=== PATIENT | female | born 1980 | race Hispanic/Latino ===

== ENCOUNTER 2022-03-03 10:18 | Emergency (ER) | payer MEDICARE ==
[~2022-03-03] VITALS: Ht 152.4 cm; Wt 61.2 kg
[2022-03-03 11:51] LABS: CLARITY,URINE CLEAR (CLEAR); COLOR,URINE YELLOW (YELLOW)
[2022-03-03 11:52] LABS: KETONES,URINE 1+ (NEGATIVE); LEUKOCYTE ESTERASE ,URINE NEGATIVE (NEGATIVE); NITRITE,URINE NEGATIVE (NEGATIVE); PROTEIN,URINE DIPSTICK 1+ (NEGATIVE); URINE UROBILINOGEN 0.2 mg/dL (0.2 - 1)
[2022-03-03 11:55] LABS: BACTERIA,URINE FEW /HPF; EPITHELIAL CELLS,URINE FEW /LPF; RBC,URINE 0-5 /HPF (0-5); TRANSITIONAL EPI CELLS,URINE RARE; WBC,URINE (MAN) 0-5 /HPF (0-5)
[2022-03-03 13:13] LABS: CALCIUM 8.8 mg/dL (8.4-10.2); CREATININE, SERUM 0.51 mg/dL (0.57-1.11)
[2022-03-03] MEDS ORDERED: HYDROCHLOROTH12.5 MG PO (13:37)
== END 2022-03-03 13:43 | disposition home or self-care (01) ==
LOC: ER 10:58
DX: R60.9 Edema, unspecified (principal); E11.65 Type 2 diabetes mellitus with hyperglycemia; I10 Essential (primary) hypertension; E78.5 Hyperlipidemia, unspecified
CPT/HCPCS: 36415; 80048; 81001; 99284